=== PATIENT | female | born 1955 | race Caucasian/White ===

== ENCOUNTER → 2018-02-21 | Outpatient (CLI) | payer OTHER ==
[~2018-02-21] MED LIST: ALPR.5 PO; Adipex-P37.5 MG PO; BUTALB-ACETAMI1 EAC1 PO; BUTASPCAFT PO; CETI5; Desyrel50 MG PO; ESTMET PO; METR500 PO; NAPR550 PO; OXYACE5T PO; Percocet 5-3251 EACH PO; RXOXYACE PO; SULTRIDS PO; Sudogest60 MG PO; VICODIN ES 7.51 EACH PO
[2018-02-21 09:45] LABS: Albumin, Blood 3.9 g/dL (3.4-5.0); Albumin/Globulin Ratio 1.2 (0.8-1.8); Bilirubin, Total 0.5 mg/dL (0.1-1.0); Bun/Creatinine Ratio 22.1 (12.0-20.0); Calcium, Blood 9.1 mg/dL (8.5-10.1); Creatinine, Blood 0.95 mg/dL (0.40-1.00); Globulin, Blood 3.3 g/dL (2.2-4.0); Magnesium, Blood 1.9 mg/dL (1.6-2.4); Potassium, Blood 3.7 mmol/L (3.5-5.5); Total Protein, Blood 7.2 g/dL (6.4-8.2)
== END | disposition home or self-care (01) ==
LOC: LAB SHORT 09:27 → LAB EV 09:27
PROVIDERS: Physician Assistant Medical
DX: G44.209 Tension-type headache, unspecified, not intractable (principal)
CPT/HCPCS: 80053; 83735

== ENCOUNTER 2022-03-31 23:30 | Emergency (ER) | payer OTHER, MEDICARE ==
[~2022-03-31] VITALS: Ht 167.6 cm; Wt 90.7 kg
[2022-03-31] MEDS ORDERED: K-Dur10 MEQ (23:51)
[2022-03-31] MEDS ORDERED: ATORVASTATIN CA20 MG PO (23:51)
[2022-03-31] MEDS ORDERED: SPIRONOLACTONE25 MG PO (23:52)
[2022-03-31] MEDS ORDERED: PROG100 (23:53)
== END 2022-04-01 02:24 | disposition home or self-care (01) ==
LOC: ER 23:30
DX: F12.929 Cannabis use, unspecified with intoxication, unspecified (principal); Z88.0 Allergy status to penicillin; Z88.5 Allergy status to narcotic agent; Z91.030 Bee allergy status; Z79.899 Other long term (current) drug therapy; E78.5 Hyperlipidemia, unspecified
CPT/HCPCS: 99284

== ENCOUNTER 2022-08-30 14:28 | Day surgery (SDC) | payer OTHER, MEDICARE ==
[~2022-08-30 14:28] MED LIST changes: +ATORVASTATIN CA20 MG PO; +K-Dur10 MEQ; +PROG100; +SPIRONOLACTONE25 MG PO
== END 2022-08-30 22:40 | disposition home or self-care (01) ==
LOC: RAD 14:28
DX: C50.811 Malignant neoplasm of overlapping sites of right female breast (principal)
CPT/HCPCS: 36598

== ENCOUNTER 2022-09-06 00:16 | Day surgery (SDC) | payer OTHER, MEDICARE | END 2022-09-06 10:14 | disposition home or self-care (01) | LOC: ATC 00:16 | DX: C50.811 Malignant neoplasm of overlapping sites of right female breast (principal); E78.5 Hyperlipidemia, unspecified; I10 Essential (primary) hypertension; Z88.0 Allergy status to penicillin; Z88.5 Allergy status to narcotic agent | CPT/HCPCS: 36593; J1642; J2997 ==

== ENCOUNTER 2022-10-12 09:09 | Inpatient (IN) | payer MEDICARE ==
[~2022-10-12] VITALS: Ht 167.6 cm; Wt 81.7 kg
[2022-10-12 10:29] LABS: Hematocrit 34.8 % (33.0-51.0); Hemoglobin 12.1 g/dL (11.5-16.0); Mean Corpuscular HGB 31.8 pg (26.0-34.0); Mean Corpuscular HGB Conc 34.8 g/dL (31.5-36.5); Mean Corpuscular Volume 91 fL (80-100); Mean Platelet Volume 9.4 fL (9.1-12.4); Platelet Count 166 K/mm3 (150-400); RDW Coefficient Variation 13.3 % (11.7-14.2); RDW Standard Deviation 43.2 fL (35.1-46.3); Red Blood Cell Count 3.81 M/mm3 (3.80-5.20)
[2022-10-12 10:36] LABS: White Blood Cell Count 0.36 K/mm3 (4.00-11.30)
[2022-10-12 10:51] LABS: Albumin, Blood 2.5 g/dL (3.4-5.0); Albumin/Globulin Ratio 0.6 (0.8-1.8); Bilirubin, Direct 0.2 mg/dL (0.0-0.3); Bilirubin, Indirect 0.6 mg/dL (0.1-0.7); Bilirubin, Total 0.8 mg/dL (0.1-1.0); Bun/Creatinine Ratio 31.2 (12.0-20.0); Calcium, Blood 9.1 mg/dL (8.5-10.1); Creatinine, Blood 0.64 mg/dL (0.40-1.00); Globulin, Blood 4.1 g/dL (2.2-4.0); Magnesium, Blood 2.1 mg/dL (1.6-2.4); Phosphorus, Blood 2.3 mg/dL (2.5-4.9); Potassium, Blood 3.9 mmol/L (3.5-5.5); Total Protein, Blood 6.6 g/dL (6.4-8.2)
[2022-10-12 11:07] LABS: BAND PERCENT MAN 4 % (0-8); BASOPHILS PERCENT MAN 0 % (0-2); EOSINOPHILS PERCENT MAN 0 % (0-6); LYMPHOCYTES ABSOLUTE MAN 0.21 K/mm3 (0.84-5.20); LYMPHOCYTES PERCENT MAN 60 % (21-46); MONOCYTES ABSOLUTE MAN 0.07 K/mm3 (0.16-1.47); MONOCYTES PERCENT MAN 20 % (4-13); NEUTROPHILS ABSOLUTE MAN 0.07 K/mm3 (1.96-9.15); SEG NEUTROPHILS PERCENT MAN 16 % (41-73); TOTAL CELLS COUNTED 25
[2022-10-12 16:54] LABS: Source, Urine Foley catheter
[2022-10-12 17:01] LABS: Appearance, Urine Clear (Clear); Bilirubin, Urine Neg (Neg); Blood, Urine 3+ (Neg); Color, Urine Yellow (P-Yellow); Glucose Qualitative, Urine Neg (Neg); Ketones, Urine Neg (Neg); Leukocyte Esterase, Urine Neg (Neg); Nitrite, Urine Neg (Neg); Protein, Urine 2+ (Neg); Specific Gravity, Urine 1.015 (1.003-1.022); Urobilinogen, Urine NORM (Normal)
[2022-10-12 17:16] LABS: Bacteria Few /hpf; Squamous Epithelial Cells Rare /hpf (Few); White Blood Cells, Urine 0-2 /hpf (0-5)
--- NOTE | 2022-10-12 18:07 | NUR ---
PT ARRIVED TO THE UNIT ORIENTED TO THE ROOM. PT REPORTS PAIN AND NAUSEA TREATED PER MAR. CULP PLACED DUE TO URINARY RETENTION. SURGICAL CONSULT CALLED. SLEPT INTERMINTENTLY AFTER ARRIVAL.
--- NOTE | 2022-10-13 04:24 | NUR ---
SHIFT SUMMARY 66 YR F ADMITTED ON 10/12/22 FOR DIVERTICULITIS AND LLQ PAIN. FULL CODE. PT C/O PAIN IN THE LLQ AND STATED THAT FENTANYL WAS NOT EFFECTIVE ON HER PAIN AND IT MADE HER NAUSEOUS. SHE WAS GIVEN NORCO AND ZOFRAN PO PER EMAR AND IT WAS MUCH MORE EFFECTIVE ACCORDING TO PATIENT. SHE STATES THAT SHE JUST FEELS AWFUL IN GENERAL AND HAS SLEPT INTERMITTENTLY THROUGHOUT SHIFT. NO C/O NAUSEA OR REQUEST FOR ZOFRAN AFTER SECOND DOSE OF NORCO SO THIS SEEMS TO WORK MUCH BETTER FOR HER PAIN CONTROL. CULP IS PATENT AND DRAINING TO GRAVITY. URINE IS SHARON COLORED.
[2022-10-13 05:36] LABS: Hematocrit 26.6 % (33.0-51.0); Hemoglobin 9.2 g/dL (11.5-16.0); Mean Corpuscular HGB 31.9 pg (26.0-34.0); Mean Corpuscular HGB Conc 34.6 g/dL (31.5-36.5); Mean Corpuscular Volume 92 fL (80-100); Mean Platelet Volume 9.5 fL (9.1-12.4); Platelet Count 168 K/mm3 (150-400); RDW Coefficient Variation 13.2 % (11.7-14.2); RDW Standard Deviation 43.8 fL (35.1-46.3); Red Blood Cell Count 2.88 M/mm3 (3.80-5.20)
[2022-10-13 06:13] LABS: Albumin, Blood 1.9 g/dL (3.4-5.0); Albumin/Globulin Ratio 0.6 (0.8-1.8); Bilirubin, Total 0.4 mg/dL (0.1-1.0); Bun/Creatinine Ratio 31.7 (12.0-20.0); Calcium, Blood 8.1 mg/dL (8.5-10.1); Creatinine, Blood 0.66 mg/dL (0.40-1.00); Globulin, Blood 3.3 g/dL (2.2-4.0); Potassium, Blood 3.7 mmol/L (3.5-5.5); Total Protein, Blood 5.2 g/dL (6.4-8.2)
[2022-10-13 06:19] LABS: BASOPHILS ABSOLUTE AUTO 0.01 K/mm3 (0.00-0.23); BASOPHILS PERCENT AUTO 2 % (0-2); EOSINOPHILS ABSOLUTE AUTO 0.01 K/mm3 (0.00-0.68); EOSINOPHILS PERCENT AUTO 2 % (0-6); IMMATURE GRAN ABSOLUTE AUTO 0.03 K/mm3 (0.00-0.10); IMMATURE GRAN PERCENT AUTO 5 % (0-1); LYMPHOCYTES ABSOLUTE AUTO 0.13 K/mm3 (0.84-5.20); LYMPHOCYTES PERCENT AUTO 22 % (21-46); MONOCYTES ABSOLUTE AUTO 0.15 K/mm3 (0.16-1.47); MONOCYTES PERCENT AUTO 26 % (4-13); NEUTROPHILS ABSOLUTE AUTO 0.25 K/mm3 (1.96-9.15); NEUTROPHILS PERCENT AUTO 43 % (41-73)
[2022-10-13 06:21] LABS: White Blood Cell Count 0.58 K/mm3 (4.00-11.30)
[2022-10-13 06:30] LABS: BAND PERCENT MAN 4 % (0-8); BASOPHILS ABSOLUTE MAN 0.01 K/mm3 (0.00-0.23); BASOPHILS PERCENT MAN 2 % (0-2); EOSINOPHILS PERCENT MAN 0 % (0-6); LYMPHOCYTES ABSOLUTE MAN 0.22 K/mm3 (0.84-5.20); LYMPHOCYTES PERCENT MAN 38 % (21-46); MONOCYTES ABSOLUTE MAN 0.13 K/mm3 (0.16-1.47); MONOCYTES PERCENT MAN 24 % (4-13); MYELOCYTE ABSOLUTE MAN 0.01 K/mm3 (0.00-0.00); MYELOCYTE PERCENT MAN 2 % (0-0); NEUTROPHILS ABSOLUTE MAN 0.19 K/mm3 (1.96-9.15); SEG NEUTROPHILS PERCENT MAN 30 % (41-73); TOTAL CELLS COUNTED 50
--- NOTE | 2022-10-13 16:43 | NUR ---
Spiritual care visit conducted. Pt tells me about her cancer and the short it has been. She then talks about the tragic loss of many close family members by murder and horrible accidents, she talks about the ways that she has coped, raised her granddaughter and carved a life out of the pain. We explore ways of managing treatment and the resources and coping skills she has. I provide therapeutic listening, gentle counseling center director, grief support and prayer. Patient responed well and shows signs greater resolve in the short and increased peace. I will continue to remain available to patient and family.
--- NOTE | 2022-10-13 19:46 | NUR ---
SHIFT SUMMARY- PT IS A/O, PLESANT AND COOPERATIVE. HER APPETITE IS POOR NO C/O NAUSEA THIS SHIFT. TREATED FOR PAIN PER DEC. PT REPORTED SOME ITCHING AND RASH ON HER CHEST, TIGHT FEELING IN HER CHEST, AND RUNNY NOSE REPORTED TO DR. NANCE. EKG PREFORMED AND BENADRYL ADMINISTERED PER ORDERS. CULP IN PLACE PATIENT AND DRAINING. BED IS IN THE LOW POSITON AND CALL LIGHT IS WITIN REACH.
[2022-10-14 06:17] LABS: Hematocrit 26.5 % (33.0-51.0); Hemoglobin 9.3 g/dL (11.5-16.0); Mean Corpuscular HGB 32.2 pg (26.0-34.0); Mean Corpuscular HGB Conc 35.1 g/dL (31.5-36.5); Mean Corpuscular Volume 92 fL (80-100); Mean Platelet Volume 9.5 fL (9.1-12.4); Platelet Count 203 K/mm3 (150-400); RDW Coefficient Variation 13.4 % (11.7-14.2); RDW Standard Deviation 43.9 fL (35.1-46.3); Red Blood Cell Count 2.89 M/mm3 (3.80-5.20); White Blood Cell Count 3.44 K/mm3 (4.00-11.30)
[2022-10-14 06:37] LABS: Albumin, Blood 1.8 g/dL (3.4-5.0); Albumin/Globulin Ratio 0.5 (0.8-1.8); Bilirubin, Total 0.2 mg/dL (0.1-1.0); Bun/Creatinine Ratio 22.3 (12.0-20.0); Calcium, Blood 7.7 mg/dL (8.5-10.1); Creatinine, Blood 0.63 mg/dL (0.40-1.00); Globulin, Blood 3.3 g/dL (2.2-4.0); Potassium, Blood 3.3 mmol/L (3.5-5.5); Total Protein, Blood 5.1 g/dL (6.4-8.2)
[2022-10-14 07:06] LABS: BAND PERCENT MAN 40 % (0-8); BASOPHILS PERCENT MAN 0 % (0-2); EOSINOPHILS PERCENT MAN 0 % (0-6); LYMPHOCYTES % ATYPICAL MANUAL 1 % (0-0); LYMPHOCYTES ABSOLUTE MAN 0.55 K/mm3 (0.84-5.20); LYMPHOCYTES PERCENT MAN 15 % (21-46); METAMYELOCYTE ABSOLUTE MAN 0.03 K/mm3 (0.00-0.00); METAMYELOCYTE PERCENT MAN 1 % (0-0); MONOCYTES ABSOLUTE MAN 0.27 K/mm3 (0.16-1.47); MONOCYTES PERCENT MAN 8 % (4-13); MYELOCYTE ABSOLUTE MAN 0.17 K/mm3 (0.00-0.00); MYELOCYTE PERCENT MAN 5 % (0-0); SEG NEUTROPHILS PERCENT MAN 30 % (41-73); TOTAL CELLS COUNTED 100
--- NOTE | 2022-10-14 07:37 | NUR ---
PATIENT SLEPT THROUGH MOST OF THE NIGHT, WAKING ONLY FOR MEDICATIONS OR ASSESSMENT. MEDICATED TWICE WITH OXYCODONE AND ONCE WITH FENTANYL ALL WITH GOOD RESULT AND ONCE WITH ZOFRAN FOR NAUSEA IN THE MORNING.
--- NOTE | 2022-10-14 17:14 | NUR ---
SHIFT SUMMARY PATIENT IS ALERT AND ORIENTED. PATIENT HAS HAD NO ACUTE EVENTS THIS SHIFT. VITAL SIGNS REVIEWED. PATIENTS WHITE COUNT HAS INCREASED. PATIENT HAS NOT COMPLAINED OF PAIN, NAUSEA, SOB OR VOMITTING THIS SHIFT. ABX AND CONT INFUSION GOING ALL SHIFT. BED IN LOCKED AND LOWEST POSITION. CALL LIGHT IN PLACE. WILL MONITOR UNTIL SHIFT CHANGE.
[2022-10-15 05:51] LABS: Hematocrit 27.6 % (33.0-51.0); Hemoglobin 9.6 g/dL (11.5-16.0); Mean Corpuscular HGB 31.9 pg (26.0-34.0); Mean Corpuscular HGB Conc 34.8 g/dL (31.5-36.5); Mean Corpuscular Volume 92 fL (80-100); Mean Platelet Volume 9.5 fL (9.1-12.4); Platelet Count 246 K/mm3 (150-400); RDW Coefficient Variation 13.6 % (11.7-14.2); RDW Standard Deviation 43.8 fL (35.1-46.3); Red Blood Cell Count 3.01 M/mm3 (3.80-5.20); White Blood Cell Count 9.44 K/mm3 (4.00-11.30)
[2022-10-15 06:15] LABS: Albumin, Blood 1.9 g/dL (3.4-5.0); Albumin/Globulin Ratio 0.7 (0.8-1.8); Bilirubin, Total 0.2 mg/dL (0.1-1.0); Bun/Creatinine Ratio 12.6 (12.0-20.0); Calcium, Blood 7.9 mg/dL (8.5-10.1); Creatinine, Blood 0.64 mg/dL (0.40-1.00); Globulin, Blood 2.8 g/dL (2.2-4.0); Potassium, Blood 3.4 mmol/L (3.5-5.5); Total Protein, Blood 4.7 g/dL (6.4-8.2)
[2022-10-15 06:27] LABS: BAND PERCENT MAN 18 % (0-8); BASOPHILS PERCENT MAN 0 % (0-2); EOSINOPHILS PERCENT MAN 0 % (0-6); LYMPHOCYTES % ATYPICAL MANUAL 1 % (0-0); LYMPHOCYTES ABSOLUTE MAN 0.56 K/mm3 (0.84-5.20); LYMPHOCYTES PERCENT MAN 5 % (21-46); METAMYELOCYTE ABSOLUTE MAN 0.28 K/mm3 (0.00-0.00); METAMYELOCYTE PERCENT MAN 3 % (0-0); MONOCYTES ABSOLUTE MAN 0.66 K/mm3 (0.16-1.47); MONOCYTES PERCENT MAN 7 % (4-13); MYELOCYTE ABSOLUTE MAN 0.09 K/mm3 (0.00-0.00); MYELOCYTE PERCENT MAN 1 % (0-0); NEUTROPHILS ABSOLUTE MAN 7.83 K/mm3 (1.96-9.15); SEG NEUTROPHILS PERCENT MAN 65 % (41-73); TOTAL CELLS COUNTED 100
--- NOTE | 2022-10-15 08:07 | NUR ---
PATIENT ARRIVED JUST AFTER MIDNIGHT TO ROOM 325 FROM ER. A&0X4, MOVES ALL EXTREMITIES, INDUSTRIAL MAINTENANCE TECHNICIAN EQUAL AND STRONG. C/O PAIN RIGHT AND LEFT UPPER QUADRANTS WHICH IS INTERMITANTLY CHRONIC PAIN FROM INTUSSUSCEPTION. SHE HAS BEEN NPO SINCE SHE WAS IN ER. SMALL BRUISE RIGHT FOREHEAD, SMALL SCRATCHES INNER ASPECT OF KNEES. HOPING TO GO HOME THIS AFTERNOON.
--- NOTE | 2022-10-15 08:17 | NUR ---
JOSHUA HAD A BETTER NIGHT LAST NIGHT. SHE WAS ABLE TO TOLERATE SOFT DIET WITH ONLY HEART BURN WHICH WAS RESOLVED WITH ODANSTERONE AND TUMS. ABDOMINAL PAIN WAS TOLERABLE ALL NIGHT. VERY LARGE BM THIS MORNING
--- NOTE | 2022-10-15 16:02 | NUR ---
SHIFT SUMMARY PATIENT IS ALERT AND ORIENTED. PATIENT HAS HAD NO ACUTE EVENTS THIS SHIFT. VITAL SIGNS REVIEWED. PATIENTS WBC HAS COME UP CONSIDERABLY. PATIENT IS CONTINUING TO GET FLUIDS AND HAS DIET UPGRADED TOLERATED. PATIENT HAS NOT COMPLAINED OF PAIN, SOB OR VOMITTING. PATIENT HAS COMPLAINED OF NAUSEA AND MEDICATED PER EMAR, DR ADDED ADDITIONAL PRN NAUSEA MEDICATION WHICH HAS BEEN SUCCESSFUL. BED IN LOCKED AND LOWEST POSITION. CALL LIGHT IN PLACE. WILL MONITOR UNTIL SHIFT CHANGE.
[2022-10-16 05:56] LABS: Hematocrit 29.1 % (33.0-51.0); Hemoglobin 10.2 g/dL (11.5-16.0); Mean Corpuscular HGB 32.4 pg (26.0-34.0); Mean Corpuscular HGB Conc 35.1 g/dL (31.5-36.5); Mean Corpuscular Volume 92 fL (80-100); Mean Platelet Volume 9.1 fL (9.1-12.4); NRBC ABSOLUTE 0.06 K/mm3 (0.00-0.02); NRBC Auto 0.5 /100 WBC (0.0-0.2); Platelet Count 277 K/mm3 (150-400); RDW Coefficient Variation 14.1 % (11.7-14.2); RDW Standard Deviation 45.6 fL (35.1-46.3); Red Blood Cell Count 3.15 M/mm3 (3.80-5.20); White Blood Cell Count 13.31 K/mm3 (4.00-11.30)
[2022-10-16 06:22] LABS: Albumin, Blood 2.1 g/dL (3.4-5.0); Albumin/Globulin Ratio 0.8 (0.8-1.8); Bilirubin, Total 0.2 mg/dL (0.1-1.0); Bun/Creatinine Ratio 7.6 (12.0-20.0); Calcium, Blood 7.9 mg/dL (8.5-10.1); Creatinine, Blood 0.66 mg/dL (0.40-1.00); Globulin, Blood 2.8 g/dL (2.2-4.0); Potassium, Blood 3.1 mmol/L (3.5-5.5); Total Protein, Blood 4.9 g/dL (6.4-8.2)
[2022-10-16 06:25] LABS: BAND PERCENT MAN 13 % (0-8); BASOPHILS ABSOLUTE MAN 0.13 K/mm3 (0.00-0.23); BASOPHILS PERCENT MAN 1 % (0-2); EOSINOPHILS PERCENT MAN 0 % (0-6); LYMPHOCYTES ABSOLUTE MAN 0.53 K/mm3 (0.84-5.20); LYMPHOCYTES PERCENT MAN 4 % (21-46); METAMYELOCYTE ABSOLUTE MAN 0.93 K/mm3 (0.00-0.00); METAMYELOCYTE PERCENT MAN 7 % (0-0); MONOCYTES ABSOLUTE MAN 1.46 K/mm3 (0.16-1.47); MONOCYTES PERCENT MAN 11 % (4-13); MYELOCYTE ABSOLUTE MAN 0.53 K/mm3 (0.00-0.00); MYELOCYTE PERCENT MAN 4 % (0-0); NEUTROPHILS ABSOLUTE MAN 9.71 K/mm3 (1.96-9.15); SEG NEUTROPHILS PERCENT MAN 60 % (41-73); TOTAL CELLS COUNTED 100
--- NOTE | 2022-10-16 07:50 | NUR ---
NO CHANGES OVER NIGHT. PATIENT GETTING A LITTLE UPSET ABOUT BEING IN HOSPITAL. LOOKING FORWARD TO [facility] HOME. MILD OF MAG GIVEN PER REQUEST FOR "ONE MORE BOWEL MOVEMENT" PRIOR TO DISCHARGE
[2022-10-16] MEDS ORDERED: LEVO750 PO (17:55)
[2022-10-16] MEDS ORDERED: MIRALAX17 GM PO (17:55)
[2022-10-16] MEDS ORDERED: METR500 PO (17:56)
--- NOTE | 2022-10-16 18:14 | NUR ---
SHIFT SUMMARY PATIENT IS ALERT AND ORIENTED. PATIENT HAS BEEN PLEASENT AND COOPERATIVE WITH CARE. PATIENT IS BEING DISCHARGED HOME WITH TRANSPORTING. PATIENT HAS UNDERSTOOD DISCHARGE INSTRUCTIONS. IV REMOVED WNL.
== END 2022-10-16 18:22 | disposition home or self-care (01) | DRG 392 ==
LOC: ER 09:09 → MEDS 13:12
PROVIDERS: Physician Assistant; ADMIT Family Medicine
DX: K57.32 Diverticulitis of large intestine without perforation or abscess without bleeding (principal); E78.5 Hyperlipidemia, unspecified; I10 Essential (primary) hypertension; J44.9 Chronic obstructive pulmonary disease, unspecified; D70.9 Neutropenia, unspecified; D64.9 Anemia, unspecified; C50.919 Malignant neoplasm of unspecified site of unspecified female breast; R11.0 Nausea; E87.6 Hypokalemia; Z20.822 Contact with and (suspected) exposure to COVID-19
CPT/HCPCS: 36415; 71045; 74177; 80048; 80053; 80076; 81001; 83605; 83690; 83735; 84100; 84145; 85025; 87040; 93005; 93010; 94760; 96365-59; 96366; 96367; 96375; 99285-25; A9270; J0692; J1170; J1650; J1885; J2405; J2550; J3010; J7030; J7120; Q9967

== ENCOUNTER 2022-11-03 16:28 | Inpatient (IN) | payer MEDICARE, OTHER ==
[~2022-11-03] VITALS: Ht 157.5 cm; Wt 79.0 kg
[~2022-11-03 16:28] MED LIST changes: +LEVO750 PO; +MIRALAX17 GM PO
[2022-11-03] MEDS ORDERED: ESOM20 PO (21:56)
--- NOTE | 2022-11-04 04:41 | NUR ---
SHIFT SUMMARY NOC ADMIT FROM ED WITH NEUTROPENIA/DIVERTICULITIS. NEUTROPENIA IS FROM ONGOING CHEMO FOR BREAST CANCER DR. MADRIGAL IS ONCOLOGIST. PT WBC WAS 0.59. PT HAD NEUPOGEN INJECTION 1 WEEK AGO. PT WAS ADMITTED 2 WEEKS AGO FOR SIGMOID DIVERTICULITIS AND WAS TAKING PO ABX AT HOME. REFERRAL FROM PCP AND ONCOLOGISHT FOR PT TO GO TO ED FOR ADMIT TO HOSPITAL. PT IS ON CEFEPIME AND FLAGYL FOR DIVERTICULTIS INFECTION. PT IS IN ISO NEUTROPENIC PRECAUTIONS. PT HAS NS @ 75 MLS RUNNING FOR REHYDRATION. PT HAS SOME EXCORIATION AND BLISTERS ON COCCYX ( PIC IN CHART). PT IS CURRENTLY RESTING WITH BED IN LOWEST POSITION AND CALL LIGHT WITHIN REACH. WCTM.
[2022-11-04 05:44] LABS: Hematocrit 25.1 % (33.0-51.0); Hemoglobin 8.5 g/dL (11.5-16.0); Mean Corpuscular HGB 32.7 pg (26.0-34.0); Mean Corpuscular HGB Conc 33.9 g/dL (31.5-36.5); Mean Corpuscular Volume 97 fL (80-100); Mean Platelet Volume 9.9 fL (9.1-12.4); Platelet Count 102 K/mm3 (150-400); RDW Coefficient Variation 16.6 % (11.7-14.2); RDW Standard Deviation 58.6 fL (35.1-46.3)
[2022-11-04 05:51] LABS: White Blood Cell Count 0.94 K/mm3 (4.00-11.30)
[2022-11-04 06:05] LABS: Albumin, Blood 2.2 g/dL (3.4-5.0); Albumin/Globulin Ratio 0.7 (0.8-1.8); Bilirubin, Total 0.5 mg/dL (0.1-1.0); Bun/Creatinine Ratio 24.4 (12.0-20.0); Calcium, Blood 8.4 mg/dL (8.5-10.1); Creatinine, Blood 0.57 mg/dL (0.40-1.00); Potassium, Blood 3.6 mmol/L (3.5-5.5); Total Protein, Blood 5.2 g/dL (6.4-8.2)
[2022-11-04 06:57] LABS: BAND PERCENT MAN 18 % (0-8); BASOPHILS PERCENT MAN 0 % (0-2); EOSINOPHILS PERCENT MAN 1 % (0-6); LYMPHOCYTES ABSOLUTE MAN 0.37 K/mm3 (0.84-5.20); LYMPHOCYTES PERCENT MAN 40 % (21-46); MONOCYTES ABSOLUTE MAN 0.12 K/mm3 (0.16-1.47); MONOCYTES PERCENT MAN 13 % (4-13); MYELOCYTE PERCENT MAN 1 % (0-0); NEUTROPHILS ABSOLUTE MAN 0.42 K/mm3 (1.96-9.15); SEG NEUTROPHILS PERCENT MAN 27 % (41-73); TOTAL CELLS COUNTED 100
--- NOTE | 2022-11-04 11:53 | NUR ---
INCORRECT DOCUMENTATION ACCIDENTAL CHART ON WRONG PT. DOCUMENTATION DELETED.
--- NOTE | 2022-11-04 17:25 | NUR ---
SHIFT SUMMARY NO ACUTE CHANGES DURING SHIFT. PT ALERT AND ORIENTED, CALLS APPROPRIATELY. AT BEDSIDE MAJORITY OF DAY. PT REMAINS ON RA, SPO2 > 92%. PT INDEPENDENT IN ROOM. IV DIURETICS CONTINUED BID. PT MEDICATED X 1 WITH PRN TYLENOL FOR HEADACHE, MEDICATION EFFECTIVE. WILL CONTINUE TO MONITOR. CALL LIGHT WITHIN REACH.
--- NOTE | 2022-11-04 17:37 | NUR ---
SHIFT SUMMARY NO ACUTE CHANGES DURING SHIFT. PT ALERT AND ORIENTED, CALLS APPROPRIATELY. PT REMAINS ON NEUTROPENIC PRECAUTIONS. PT ON RA, SPO2 > 92%. PT INDEPENDENT IN ROOM. CONTINUE IV ABX. PT WITH GEN SURG CONSULT. NO C/O PAIN. WILL CONTINUE TO MONITOR. CALL LIGHT WITHIN REACH.
--- NOTE | 2022-11-05 03:43 | NUR ---
SHIFT SUMMARY NOC PT A/O X 4. PT PLEASANT AND COOPERATIVE WITH CARE. PT HAS C/O OF CONSITPATION AND REPORTS THAT MIRALAX IS NOT WORKING SO MOM ORDER WAS OBTAINED. GENERAL CONSULT WAS PUT IN WITH DR. ASTORGA FOR RESOLUTION OF SIGMOID DIVERTICULITIS. D/C PENDING CONSULT. NO ACUTE CHANGES TO REPORT. PT WBC WAS 0.94 AND AWAITING AM LABS TO SEE IF THEY ARE IMPROVING. PT STILL ON ABX REGIMEN. PT HAD NO C/O LLQ PN. PT IS CURRENTLY RESTING WITH BED IN LOWEST POSITION AND CALL LIGHT WITHIN REACH. WCTM.
[2022-11-05 05:00] LABS: Hematocrit 26.8 % (33.0-51.0); Mean Corpuscular HGB 32.6 pg (26.0-34.0); Mean Corpuscular HGB Conc 33.6 g/dL (31.5-36.5); Mean Corpuscular Volume 97 fL (80-100); Mean Platelet Volume 9.4 fL (9.1-12.4); Platelet Count 115 K/mm3 (150-400); RDW Coefficient Variation 16.8 % (11.7-14.2); RDW Standard Deviation 58.4 fL (35.1-46.3); Red Blood Cell Count 2.76 M/mm3 (3.80-5.20); White Blood Cell Count 3.56 K/mm3 (4.00-11.30)
[2022-11-05 05:31] LABS: BAND PERCENT MAN 9 % (0-8); BASOPHILS ABSOLUTE MAN 0.03 K/mm3 (0.00-0.23); BASOPHILS PERCENT MAN 1 % (0-2); EOSINOPHILS ABSOLUTE MAN 0.03 K/mm3 (0.00-0.68); EOSINOPHILS PERCENT MAN 1 % (0-6); LYMPHOCYTES ABSOLUTE MAN 0.53 K/mm3 (0.84-5.20); LYMPHOCYTES PERCENT MAN 15 % (21-46); MONOCYTES ABSOLUTE MAN 0.17 K/mm3 (0.16-1.47); MONOCYTES PERCENT MAN 5 % (4-13); MYELOCYTE ABSOLUTE MAN 0.03 K/mm3 (0.00-0.00); MYELOCYTE PERCENT MAN 1 % (0-0); NEUTROPHILS ABSOLUTE MAN 2.74 K/mm3 (1.96-9.15); SEG NEUTROPHILS PERCENT MAN 68 % (41-73); TOTAL CELLS COUNTED 100
[2022-11-05 05:44] LABS: Albumin, Blood 2.4 g/dL (3.4-5.0); Albumin/Globulin Ratio 0.8 (0.8-1.8); Bilirubin, Total 0.3 mg/dL (0.1-1.0); Bun/Creatinine Ratio 17.1 (12.0-20.0); C-REACTIVE PROTEIN, EXT RANGE 7.9 mg/dL (0.000-0.300); Calcium, Blood 8.9 mg/dL (8.5-10.1); Creatinine, Blood 0.64 mg/dL (0.40-1.00); Phosphorus, Blood 2.6 mg/dL (2.5-4.9); Potassium, Blood 3.7 mmol/L (3.5-5.5); Total Protein, Blood 5.4 g/dL (6.4-8.2)
[2022-11-05] MEDS ORDERED: VISBIOME 112.51 EACH PO (12:42)
[2022-11-05] MEDS ORDERED: LEVFLO500 PO (12:43)
[2022-11-05] MEDS ORDERED: METR500 PO (12:44)
--- NOTE | 2022-11-05 13:25 | NUR ---
PATIENT DISCHARGED TO HOME ACCOMPANIED BY HER SPOUSE. VERBALIZED UNDERSTANDING OF D/C INSTRUCTIONS. IV SALINE LOCK REMOVED WITHOUT INCIDENT. OFF UNIT VIA W/C AT 1313. NO PERSONAL BELONGINGS LEFT BEHIND IN ROOM.
== END 2022-11-05 13:17 | disposition home or self-care (01) | DRG 809 ==
LOC: ER 16:28 → MEDS 20:13
PROVIDERS: Hospitalist; ADMIT Internal Medicine
DX: D70.1 Agranulocytosis secondary to cancer chemotherapy (principal); K57.20 Diverticulitis of large intestine with perforation and abscess without bleeding; C50.919 Malignant neoplasm of unspecified site of unspecified female breast; J44.9 Chronic obstructive pulmonary disease, unspecified; E78.5 Hyperlipidemia, unspecified; I10 Essential (primary) hypertension; L40.9 Psoriasis, unspecified; T45.1X5A Adverse effect of antineoplastic and immunosuppressive drugs, initial encounter; Z98.890 Other specified postprocedural states; Z88.0 Allergy status to penicillin; Z88.5 Allergy status to narcotic agent; Z91.030 Bee allergy status; Z91.038 Other insect allergy status; Z79.2 Long term (current) use of antibiotics; Z79.899 Other long term (current) drug therapy
CPT/HCPCS: 36415; 80053; 83735; 84100; 85025; 85651; 86140; 96365; 96367; 99285-25; A9270; J0692; J1650; J7030

== ENCOUNTER 2023-02-15 16:28 | Inpatient (IN) | payer MEDICARE, OTHER ==
[~2023-02-15] VITALS: Ht 167.6 cm; Wt 72.5 kg
[~2023-02-15 16:28] MED LIST changes: +CEFP200 PO; +ESOM20 PO; +LEVFLO500 PO; +NYSTATIN100000 U10 SS; +VISBIOME 112.51 EACH PO
[2023-02-15 19:25] LABS: Hematocrit 39.4 % (33.0-51.0); Hemoglobin 13.4 g/dL (11.5-16.0); Mean Corpuscular HGB 34.3 pg (26.0-34.0); Mean Corpuscular Volume 101 fL (80-100); Mean Platelet Volume 9.4 fL (9.1-12.4); Platelet Count 242 K/mm3 (150-400); RDW Coefficient Variation 15.7 % (11.7-14.2); RDW Standard Deviation 57.9 fL (35.1-46.3); Red Blood Cell Count 3.91 M/mm3 (3.80-5.20); White Blood Cell Count 11.24 K/mm3 (4.00-11.30)
[2023-02-15 19:45] LABS: Albumin, Blood 3.2 g/dL (3.4-5.0); Bilirubin, Total 0.4 mg/dL (0.1-1.0); Calcium, Blood 8.9 mg/dL (8.5-10.1); Creatinine, Blood 0.92 mg/dL (0.40-1.00); Globulin, Blood 3.2 g/dL (2.2-4.0); Potassium, Blood 4.3 mmol/L (3.5-5.5); Total Protein, Blood 6.4 g/dL (6.4-8.2)
[2023-02-15 19:47] LABS: BAND PERCENT MAN 2 % (0-8); BASOPHILS PERCENT MAN 0 % (0-2); EOSINOPHILS PERCENT MAN 0 % (0-6); LYMPHOCYTES % ATYPICAL MANUAL 1 % (0-0); LYMPHOCYTES ABSOLUTE MAN 1.01 K/mm3 (0.84-5.20); LYMPHOCYTES PERCENT MAN 8 % (21-46); METAMYELOCYTE ABSOLUTE MAN 0.67 K/mm3 (0.00-0.00); METAMYELOCYTE PERCENT MAN 6 % (0-0); MONOCYTES ABSOLUTE MAN 0.44 K/mm3 (0.16-1.47); MONOCYTES PERCENT MAN 4 % (4-13); SEG NEUTROPHILS PERCENT MAN 79 % (41-73); TOTAL CELLS COUNTED 100
[2023-02-15] MEDS ORDERED: SULFAMETHOXAZO1 EAC1 PO (22:44)
[2023-02-15] MEDS ORDERED: CEPH500 PO (22:44)
[2023-02-15] MEDS ORDERED: DEXAMETHASONE PO (22:45)
[2023-02-15] MEDS ORDERED: PSEUDOEPHEDRINE3010 PO (22:46)
[2023-02-15] MEDS ORDERED: ESOMEPRAZOLE MA40 MG PO (22:46)
[2023-02-15] MEDS ORDERED: SILVER SULFADIA2011 TOP (22:48)
[2023-02-16 00:36] VITALS: BP 144/79
[2023-02-16] MEDS ORDERED: ALPHA LIPOIC A600 MG PO (00:44)
--- NOTE | 2023-02-16 02:57 | NUR ---
ARRIVAL PT ARRIVED TO THE FLOOR FROM ER IN NO DISTRESS AND ON RA. THE PATIENTS DAUGHTER IN LAW WAS AT BEDSIDE. PT IS REPORTING GLUTEAL FOLD AND BUTTOX PAIN D/T SKIN ULCERATION SECONDARY TO CHEMOTHERAPY; AND LOWER ABD PAIN, BLADDER PAIN,URETHRAL BURNING, AND VULVAL PAIN D/T COLOVESSICAL FISTULA. POWERGLIDE PLACED BY ICU NURSE. VSS. PT MEDICATED PER EMAR AND SURGICAL [place] COMPLETE. AWAITING GENERAL SURGERY CONSULT IN THE AM. THE PATIENT IS SLEEPING, IN NO DISTRESS, CALL LIGHT IN REACH
[2023-02-16 04:32] VITALS: BP 138/71
[2023-02-16 04:50] LABS: Hematocrit 36.3 % (33.0-51.0); Hemoglobin 12.1 g/dL (11.5-16.0); Mean Corpuscular HGB Conc 33.3 g/dL (31.5-36.5); Mean Corpuscular Volume 102 fL (80-100); Mean Platelet Volume 9.2 fL (9.1-12.4); Platelet Count 207 K/mm3 (150-400); RDW Coefficient Variation 15.4 % (11.7-14.2); RDW Standard Deviation 58.9 fL (35.1-46.3); Red Blood Cell Count 3.56 M/mm3 (3.80-5.20); White Blood Cell Count 9.98 K/mm3 (4.00-11.30)
--- NOTE | 2023-02-16 05:02 | NUR ---
SHIFT SUMMARY VSS. PT SLEPT WELL T/O THE NIGHT. PT ABLE TO AMBULATE TO THE BATHROOM TO VOID. HAS REMAINED NPO SINCE ARRIVING TO THE FLOOR. NO ACUTE EVENTS NOTED. PT MEDICATED FOR PAIN ONCE WITH GOOD RESULTS. PLAN FOR GENERAL SURGERY TO CONSULT ON THIS PATIENT TODAY, THIS WILL DICTATE PLAN OF CARE. THE PATIENT IS CURRENTLY SLEEPING, IN NO DISTRESS, CALL LIGHT INR EACH
[2023-02-16 05:11] LABS: Albumin, Blood 2.8 g/dL (3.4-5.0); Bilirubin, Total 0.4 mg/dL (0.1-1.0); Bun/Creatinine Ratio 37.5 (12.0-20.0); Calcium, Blood 8.7 mg/dL (8.5-10.1); Creatinine, Blood 0.77 mg/dL (0.40-1.00); Globulin, Blood 2.9 g/dL (2.2-4.0); Magnesium, Blood 2.2 mg/dL (1.6-2.4); Potassium, Blood 4.2 mmol/L (3.5-5.5); Total Protein, Blood 5.7 g/dL (6.4-8.2)
[2023-02-16 05:35] LABS: BAND PERCENT MAN 1 % (0-8); BASOPHILS PERCENT MAN 0 % (0-2); EOSINOPHILS ABSOLUTE MAN 0.09 K/mm3 (0.00-0.68); EOSINOPHILS PERCENT MAN 1 % (0-6); LYMPHOCYTES ABSOLUTE MAN 0.69 K/mm3 (0.84-5.20); LYMPHOCYTES PERCENT MAN 7 % (21-46); METAMYELOCYTE ABSOLUTE MAN 0.09 K/mm3 (0.00-0.00); METAMYELOCYTE PERCENT MAN 1 % (0-0); MONOCYTES ABSOLUTE MAN 0.39 K/mm3 (0.16-1.47); MONOCYTES PERCENT MAN 4 % (4-13); MYELOCYTE ABSOLUTE MAN 0.39 K/mm3 (0.00-0.00); MYELOCYTE PERCENT MAN 4 % (0-0); NEUTROPHILS ABSOLUTE MAN 8.28 K/mm3 (1.96-9.15); SEG NEUTROPHILS PERCENT MAN 82 % (41-73); TOTAL CELLS COUNTED 100
[2023-02-16 07:10] VITALS: BP 145/69
[2023-02-16 14:05] VITALS: BP 129/75
--- NOTE | 2023-02-16 18:17 | NUR ---
PT REPORTS HAVING LIQUID STOOL OUT OF VAGINA. ALVIN AREA EXCORIATED AND TENDER. PT PROVIDED WITH ALVIN BOTTLE FOR CLEANSING-HAS NOT USED AT THIS TIME. PT PLANNING FOR DISCHARGE IN AM. PT REPORTS VERY TIRED, HAS DECIED NEED FOR PAIN MED OR ANTINAUSEA MEDS
[2023-02-16 20:08] VITALS: BP 122/71
[2023-02-17 04:07] VITALS: BP 127/66
--- NOTE | 2023-02-17 05:44 | NUR ---
SHIFT SUMMARY: PT HERE FOR COLEVESICULAR FISTULA. PT CONTINUES TO REPORT PASSING STOOL THROUGH VAGINAL AND WITH URINATION AND REPORTS EXTREME PAIN. PT HAS BEEN ABLE TO REST FOR THE MAJORITY OF THE NIGHT. PT RESTING AT THIS TIME WITH CALL LIGHT IN REACH. FLUIDS CONTINUE TO RUN. VSS. WILL GIVE REPORT TO DAY TIME RN.
[2023-02-17 07:34] VITALS: BP 141/81
--- NOTE | 2023-02-17 13:04 | NUR ---
PT DISCHARGE. COVERED DISCHARGE INSTRUCTIONS WITH PATIENT AND SPOUSE. PT TRANSFERED OUT OF BUILDING TO PERSONAL VEHICLE VIA WHEEL CHAIR AT 1235.
== END 2023-02-17 12:35 | disposition home or self-care (01) | DRG 392 ==
LOC: ER 16:28 → SURS 16:29
PROVIDERS: Family Medicine; Physician Assistant; ADMIT Student in an Organized Health Care Education/Training Program
DX: K57.20 Diverticulitis of large intestine with perforation and abscess without bleeding (principal); N32.1 Vesicointestinal fistula; J44.9 Chronic obstructive pulmonary disease, unspecified; I10 Essential (primary) hypertension; G62.9 Polyneuropathy, unspecified; L89.152 Pressure ulcer of sacral region, stage 2; C50.911 Malignant neoplasm of unspecified site of right female breast; F41.9 Anxiety disorder, unspecified; F32.A Depression, unspecified; R73.9 Hyperglycemia, unspecified; R29.6 Repeated falls; E78.5 Hyperlipidemia, unspecified; L40.9 Psoriasis, unspecified; K76.0 Fatty (change of) liver, not elsewhere classified; J32.9 Chronic sinusitis, unspecified; R73.03 Prediabetes; Z88.0 Allergy status to penicillin; Z88.5 Allergy status to narcotic agent; Z91.030 Bee allergy status; Z79.899 Other long term (current) drug therapy; Z79.2 Long term (current) use of antibiotics; Z87.19 Personal history of other diseases of the digestive system; Z90.710 Acquired absence of both cervix and uterus; Z90.722 Acquired absence of ovaries, bilateral; Z90.89 Acquired absence of other organs; Z98.890 Other specified postprocedural states
CPT/HCPCS: 36415; 74177; 80053; 83735; 85025; 96361; 96365; 96366; 96375; 96376; 99285-25; A9270; C1751; G0378; J0696; J2405; J3010; J3480; J7030; Q9967

== ENCOUNTER 2023-05-29 08:49 | Day surgery (SDC) | payer MEDICARE, OTHER ==
[~2023-05-29] VITALS: Ht 167.6 cm; Wt 75.6 kg
[~2023-05-29 08:49] MED LIST changes: +ALPHA LIPOIC A600 MG PO; +CEPH500 PO; +DEXAMETHASONE PO; +ESOMEPRAZOLE MA40 MG PO; +PSEUDOEPHEDRINE3010 PO; +SILVER SULFADIA2011 TOP; +SULFAMETHOXAZO1 EAC1 PO
[2023-05-29] MEDS ORDERED: CELECOXIB100 MG (09:16)
[2023-05-29] MEDS ORDERED: GABAPENTIN250 MG/59 (09:16)
[2023-05-29] MEDS ORDERED: FURO40 (09:17)
[2023-05-29 10:51] VITALS: BP 132/75
--- NOTE | 2023-05-29 10:54 | NUR ---
05/29/23 1054 Lucia Gong IV DC'D CATH INTACT. PT TOLERATED WELL. COBAN/GAUZE IN PLACE
== END 2023-05-29 10:54 | disposition home or self-care (01) ==
LOC: ORSCSDS 08:49
PROVIDERS: Internal Medicine Gastroenterology
PROC: 0DBK8ZX Excision of Ascending Colon, Via Natural or Artificial Opening Endoscopic, Diagnostic (ICD-10-PCS; principal; 2023-05-29 10:15)
PROC: 0DBM8ZX Excision of Descending Colon, Via Natural or Artificial Opening Endoscopic, Diagnostic (ICD-10-PCS; principal; 2023-05-29 10:15)
DX: Z12.11 Encounter for screening for malignant neoplasm of colon (principal); D12.2 Benign neoplasm of ascending colon; K63.5 Polyp of colon; K57.30 Diverticulosis of large intestine without perforation or abscess without bleeding; K64.8 Other hemorrhoids; K76.0 Fatty (change of) liver, not elsewhere classified; J44.9 Chronic obstructive pulmonary disease, unspecified; I10 Essential (primary) hypertension; E78.5 Hyperlipidemia, unspecified; Z79.899 Other long term (current) drug therapy
CPT/HCPCS: 88305; J2704; J7120

== ENCOUNTER → 2024-11-13 | Outpatient (CLI) | payer MEDICARE, OTHER ==
[~2024-11-13] MED LIST changes: +CELE100 PO; +CELECOXIB100 MG; +FURO40; +FUROSEMIDE40 MG PO; +GABAPENTIN250 MG/59; +NEURONTIN300 MG PO; +Potassium Chlo20 ME1 PO
[2024-11-16 21:43] LABS: B PERTUSSIS/PARAPERTUSS SOURCE Not Provided; BORD PARAPERTUSSIS BY PCR Not Detected; BORDETELLA PERTUSSIS BY PCR Not Detected
== END ==
LOC: LAB 18:09 → LAB SHORT 18:09
PROVIDERS: Nurse Practitioner Family
DX: R05.1 Acute cough (principal)
CPT/HCPCS: 87280; 87798